=== PATIENT | female | born 1990 | race Caucasian/White ===

== ENCOUNTER 2019-07-05 10:33 | Emergency (ER) | payer OTHER ==
[~2019-07-05] VITALS: Ht 162.6 cm; Wt 65.8 kg
[2019-07-05] MEDS ORDERED: IBUPROFEN 600600 M1 PO (11:44)
[2019-07-05 12:12] VITALS: BP 138/59
== END 2019-07-05 12:12 | disposition home or self-care (01) ==
LOC: ER 10:33
DX: S50.02XA Contusion of left elbow, initial encounter (principal); W01.0XXA Fall on same level from slipping, tripping and stumbling without subsequent striking against object, initial encounter; Y93.G3 Activity, cooking and baking; Y92.098 Other place in other non-institutional residence as the place of occurrence of the external cause; Y99.8 Other external cause status